=== PATIENT | female | born 1955 | race Caucasian/White ===

== ENCOUNTER 2023-11-25 06:54 | Inpatient (IN) | payer MEDICARE, MEDICAID ==
[2023-11-25] VITALS (19 sets, daily range): BP systolic 73–144; BP diastolic 47–81; PULSE 48–132; TEMP 97.4–97.8
[~2023-11-25] VITALS: Ht 160 cm; Wt 160.0 kg
[~2023-11-25 06:54] MED LIST: ALDACTONE 25MG25 M1 PO; ALL DAY ALLERGY10 M3 PO; BENADRYL25 M2 PO; BETAPACE 80MG80 MG PO; BUMEX2 MG PO; CALCITRIOL PO; CEPHALEXIN500 M1 PO; CRESTOR20 MG PO; DESYREL 50MG50 MG PO; DULCOLAX STOOL100 MG PO; EFFEXOR XR37.5 MG/CA PO; ELIQUIS 5MG PO; K-DUR20 MEQ PO; NATURE'S BLEND100 M2 PO; TAZTIA240 PO; TOPROL XL 25MG25 MG PO; TYLENOL 325MG325 MG PO; TYLENOL 500MG500 MG PO; UBIQUINOL100 MG PO; ULTRAM 50MG TAB50 MG PO; VITAMIND3 5000 PO; VOLTAREN GEL 1%1 TU TP; ZYLOPRIM 300MG300 MG PO
--- NOTE | 2023-11-25 07:32 | NUR ---
Patient arrived to unit via electric wheelchair from admissions.Pt reports recent fall at facility where she resides.Pt reports she can transfer independently.Standby assist x 2,gaitbelt used.Pt observed short of breath post transfer.Oxygen SAt at 76% after transfer.Pt reports she wears oxygen at night at 1 liter via nasal cannula.Rtmellisa notified.pt placed on oxygen via nasal cannula at 1 liter to start per instructions of RT.Pt now on 2 liters via nasal cannula at 90%.Daughter arrived and is at bedside.Pt observed resting in bed.EKG obtained by RT.
[2023-11-25 08:20] LABS: MEAN CELL VOLUME 90 fl (80.0-100.0); MEAN CORPUSCULAR HGB CONC 29 g/dl (33.0-37.0); MEAN PLATELET VOLUME 10.3 fl (7.4-10.4); PLATELET COUNT 355 K/mm3 (130-400); RED BLOOD COUNT 2.94 M/mm3 (4.10-5.30); REDCELL DISTRIBUTION WIDTH-CV 18.3 % (11.5-14.5)
[2023-11-25 08:25] LABS: HEMATOCRIT 26.3 % (37.0-47.0); HEMOGLOBIN 7.6 g/dl (12.5-16.0); MEAN CORPUSCULAR HEMOGLOBIN 26 pg (27-31)
[2023-11-25 08:35] LABS: INR 1.3 (0.8-3.0); PROTHROMBIN TIME 14.4 SECONDS (9.7-12.8)
[2023-11-25] MEDS ORDERED: EFFEXOR 3737.5 MG/TA PO (08:42)
[2023-11-25 08:43] LABS: CALCIUM 8.5 mg/dL (8.4-10.2); CREATININE, serum 2.21 mg/dL (0.57-1.11); POTASSIUM 3.3 mEq/L (3.5-4.5)
[2023-11-25] MEDS ORDERED: CRESTOR20 MG PO (08:44)
[2023-11-25] MEDS ORDERED: TYLENOL 500MG500 MG PO (08:46)
[2023-11-25] MEDS ORDERED: MAG-OX 400400 MG/TAB PO (08:47)
[2023-11-25] MEDS ORDERED: JARDIANCE25 PO (08:47)
[2023-11-25] MEDS ORDERED: CLARITIN 1010 MG/TAB PO (08:48)
[2023-11-25] MEDS ORDERED: ZYRTEC 10MG10 MG PO (08:49)
[2023-11-25] MEDS ORDERED: DESYREL 100MG100 MG PO (08:49)
[2023-11-25] MEDS ORDERED: NEURONTIN300 MG/CAP PO (08:50)
[2023-11-25] MEDS ORDERED: NEURONTIN600 MG/TAB PO (08:51)
[2023-11-25] MEDS ORDERED: VITAMIND3 5000 PO (08:52)
[2023-11-25] MEDS ORDERED: K-TAB20 PO (08:53)
[2023-11-25] MEDS ORDERED: B-121000 MCG PO (08:54)
[2023-11-25] MEDS ORDERED: ZAROXOLYN 2.52.5 MG PO (09:03)
[2023-11-25] MEDS ORDERED: NYAMYC100000 U/G TP (09:06)
[2023-11-25] MEDS ORDERED: ANTIVERT 25MG25 MG PO (09:07)
[2023-11-25] MEDS ORDERED: BIOTENE DRY M1000 ML PO (09:09)
[2023-11-25] MEDS ORDERED: CELEBREX 1100 MG/CAP PO (09:12)
[2023-11-25] MEDS ORDERED: TUSSIN CF PO (09:16)
[2023-11-25] MEDS ORDERED: VOLTAREN GEL 1%1 TU TP (09:16)
[2023-11-25] MEDS ORDERED: OXYGEN (09:17)
[2023-11-25] MEDS ORDERED: PREPH RC (09:18)
--- NOTE | 2023-11-25 09:43 | NUR ---
Urine sample obtained using straight cath kit following completion of trisha cares. Assisted by BAL Thomas. Pt tolerated well. Urine light yellow, cloudy with sediment. Pt now resting comfortably in bed. Call light in hand.
[2023-11-25] MEDS ORDERED: 1/2 NS 1,000 ML IV SCH (09:45)
[2023-11-25] MEDS ORDERED: ceFAZolin 2 G in Water For Injection,Sterile 20 ML IV SCH (09:45)
[2023-11-25] MEDS ORDERED: LR 1,000 ML IV SCH (10:00)
[2023-11-25] MEDS ORDERED: Acetaminophen 325 MG TAB PO PRN (10:00)
[2023-11-25] MEDS ORDERED: Ondansetron 4 MG/2 ML VIAL IV PRN (10:00)
[2023-11-25 10:08] LABS: COLLECTION METHOD CATHETER
[2023-11-25 10:15] LABS: PH 5.5 (5.0-8.5); URINE APPEARANCE TURBID (CLEAR/HAZY); URINE BLOOD 1+ (NEGATIVE); URINE COLOR YELLOW (YELLOW); URINE GLUCOSE 2+ (NEGATIVE); URINE KETONE NEGATIVE (NEGATIVE); URINE NITRATE NEGATIVE (NEGATIVE); URINE PROTEIN(semi-quant) 1+ (NEGATIVE); URINE UROBILINOGEN 0.2 E.U/dL (0.2-1.0)
--- NOTE | 2023-11-25 10:15 | NUR ---
Report to Virginia Hardy.Pt to transfer to room 353.
--- NOTE | 2023-11-25 11:00 | NUR ---
Pt transferred to room 353.report to Virginia Hernández.Patient assisted to bed x 2 assist,gaitbelt used.Daughter at bedside.Calllight within reach.
[2023-11-25 11:26] LABS: BASO # 0.1 K/mm3 (0.0-0.2); BASO % 0.4 % (0.0-2.0); EOS # 0.3 K/mm3 (0.0-0.7); EOS % 1.7 % (0.0-4.0); LYMPH # 1.4 K/mm3 (1.2-3.4); LYMPH % 8.8 % (20.0-51.0); MEAN CELL VOLUME 87 fl (80.0-100.0); MEAN CORPUSCULAR HGB CONC 29 g/dl (33.0-37.0); MEAN PLATELET VOLUME 10.6 fl (7.4-10.4); MONO # 0.9 K/mm3 (0.1-0.6); MONO % 5.5 % (1.7-9.3); PLATELET COUNT 382 K/mm3 (130-400)
[2023-11-25 11:31] LABS: HEMATOCRIT 26.2 % (37.0-47.0); HEMOGLOBIN 7.6 g/dl (12.5-16.0); MEAN CORPUSCULAR HEMOGLOBIN 25 pg (27-31)
[2023-11-25 11:47] LABS: SQUAMOUS EPITHELIAL 0-2 /hpf (0-10); URINE WBC >50 /hpf (0-2)
[2023-11-25] MEDS ORDERED: Phenylephrine/Mineral Oil/Petrolatum 57 GM TUBE RC PRN (12:00)
[2023-11-25] MEDS ORDERED: cefTRIAXone 2 G in Water For Injection,Sterile 20 ML IV SCH (12:00)
[2023-11-25] MEDS ORDERED: Meclizine 25 MG TAB PO PRN (12:00)
[2023-11-25] MEDS ORDERED: Mouth Moisturizer Spray 30 ML BOTTLE PO PRN (12:00)
[2023-11-25] MEDS ORDERED: Nystatin Powder **** subs to Miconazole Powder TOP PRN (12:00)
[2023-11-25] MEDS ORDERED: *Potassium Replacement Protocol MC SCH (12:15)
[2023-11-25] MEDS ORDERED: Potassium Bicarbonate/Citrate 20 MEQ Effervescent TAB PO SCH (12:15)
[2023-11-25] MEDS ORDERED: Miconazole 2% Topical Powder BOTTLE TP PRN (12:15)
--- NOTE | 2023-11-25 13:05 | NUR ---
PT ADMITTED INTO ROOM 353 AT [place] [id number] WITH A DIAGNOSIS OF HYPOXIA, UTI AND FALLS. O2 2L/NC. SHORT OF BREATH AT REST. DAUGHTER BROUGHT PT'S HOME CPAP WHICH IS AT BEDSIDE. FALL PRECAUTIONS IN PLACE. PATIETN REPORTS DIZZINESS WITH RECENT HISTORY OF FALLS. LARGE BRUISE NOTED FROM RIGHT ELBOW TO INNER UPPER ARM. MICHAEL CARE PROVIDED AND PUREWICK PLACED. TELE ADMINISTERED WITH A FLUTTER/A FIB RATE 90-100 PER CALL CENTER NURSE. DAUGHTER AT [facility]. NO COMPLAINTS AT THIS TIME. CALL LIGHT WITHIN REACH. BED ALARM ON.
[2023-11-25] MEDS ORDERED: Insulin Lispro (HumaLOG) SQ SCH (17:00)
--- NOTE | 2023-11-25 19:32 | NUR ---
First unit of PRBC started at 1735. This nurse remained with patient the first 15 minutes. Pt without s/s blood transfusion reaction. Rate for first 15 minutes 60ml/hr and increased to 120 after initial 15 minutes. Blood pressure improved. See flowsheet for vital signs. Transfusion continues at 120ml/hr. Patient now in bariatric bed. Resting with c-pap on.
--- NOTE | 2023-11-25 20:01 | NUR ---
DEONTE Morrison gave bedside report with this nurse (preceptor) present. PRBC infusion and IV site without s/s IV related complicaitons. Pt drowsy, wearing c-pap but arouses easily. VSS- see flowsheet. Pt to receive 2nd unit after completion of first unit.
--- NOTE | 2023-11-25 20:40 | NUR ---
UPON SHIFT ASSESSMENT, KIRBY'S TRANFUSION OF PRBC WAS NEARING COMPLETION. VS ARE STABLE AND TELE IS A-FIB AT 103 BPM. SHE IS AXO X 4 BUT STATES SHE FEELS TIRED. DENIES CHEST PAIN. LUNG SOUNDS ARE DIMISHED THROUGHOUT. PUREWICK DRAINING CLOUDY YELLOW URINE. REQUESTED VANILLA ICE CREAM. MED PASS COMPLETE. STATES NO OTHER NEEDS AT THIS TIME. BED ALARM ON AND CALL LIGHT WITHIN REACH.
[2023-11-25] MEDS ORDERED: Acetaminophen 500 MG TAB PO SCH (21:00)
[2023-11-25] MEDS ORDERED: Atorvastatin 40 MG TAB PO SCH (21:00)
[2023-11-25] MEDS ORDERED: Magnesium Oxide 400 MG TAB PO SCH (21:00)
[2023-11-25] MEDS ORDERED: Cetirizine 10 MG TAB PO SCH (21:00)
[2023-11-25 21:50] LABS: HEMATOCRIT 26.7 % (37.0-47.0); HEMOGLOBIN 7.8 g/dl (12.5-16.0)
--- NOTE | 2023-11-25 22:09 | NUR ---
CALL PLACED TO HOSPITALISTCEASAR. 1HR POST TRANSFUSION H&H 7.8 HgB. HOSPITALIST STATED POST H&H DONE TOO EARLY FOLLOWING TRANSFUSION. TORB TO REDRAW H&H AT 00:00 AND REDUCE LR DRIP RATE TO 50ML/HR GIVEN.
[2023-11-26] VITALS (24 sets, daily range): BP systolic 88–120; BP diastolic 57–95; PULSE 49–126; TEMP 97.4–98.5
[2023-11-26 00:55] LABS: HEMATOCRIT 25.8 % (37.0-47.0); HEMOGLOBIN 7.6 g/dl (12.5-16.0)
--- NOTE | 2023-11-26 01:04 | NUR ---
CALL PLACED TO HOSPITALIST CEASAR. PATIENT H&H RESULTS 7.6 Hgb. TORB TO TRANSFUSE ANOTHER UNIT PRBC
--- NOTE | 2023-11-26 04:01 | NUR ---
CALL PLACED TO HOSPITALIST CEASAR. RUBEN TO PROCEED WITH LASIXS IV FOLLOWING TRANSFUSION OF PRBC. SYSTOLIC BP MUST BE ABOVE 110 SYSTOLIC.
[2023-11-26] MEDS ORDERED: Furosemide 40 MG/4 ML VIAL IV ONE (06:00)
[2023-11-26 06:45] LABS: BASO # 0.1 K/mm3 (0.0-0.2); BASO % 0.4 % (0.0-2.0); EOS # 0.2 K/mm3 (0.0-0.7); EOS % 2.1 % (0.0-4.0); GRAN # 8.3 K/mm3 (1.4-6.5); GRAN % 73.9 % (42.2-75.2); LYMPH # 1.8 K/mm3 (1.2-3.4); MEAN CELL VOLUME 91 fl (80.0-100.0); MEAN CORPUSCULAR HGB CONC 30 g/dl (33.0-37.0); MEAN PLATELET VOLUME 10.8 fl (7.4-10.4); MONO # 0.8 K/mm3 (0.1-0.6); MONO % 7.2 % (1.7-9.3); PLATELET COUNT 342 K/mm3 (130-400); RED BLOOD COUNT 3.12 M/mm3 (4.10-5.30); REDCELL DISTRIBUTION WIDTH-CV 17.4 % (11.5-14.5)
[2023-11-26 06:53] LABS: HEMATOCRIT 28.3 % (37.0-47.0); HEMOGLOBIN 8.4 g/dl (12.5-16.0); MEAN CORPUSCULAR HEMOGLOBIN 27 pg (27-31)
[2023-11-26 07:12] LABS: CALCIUM 8.9 mg/dL (8.4-10.2); CREATININE, serum 2.05 mg/dL (0.57-1.11); POTASSIUM 3.5 mEq/L (3.5-4.5)
[2023-11-26] MEDS ORDERED: Calcitriol 0.25 MCG CAP PO SCH (09:00)
[2023-11-26] MEDS ORDERED: Pantoprazole 40 MG in NS 10 ML IV SCH (09:00)
[2023-11-26] MEDS ORDERED: Venlafaxine XR 37.5 MG CAP PO SCH (09:00)
[2023-11-26] MEDS ORDERED: Loratadine 10 MG TAB PO SCH (09:00)
[2023-11-26] MEDS ORDERED: Potassium Bicarbonate/Citrate 20 MEQ Effervescent TAB PO ONE (10:00)
--- NOTE | 2023-11-26 10:25 | NUR ---
Initial visit attempt; Patient sleeping, Ecmo Specialist left card offering [facility].
[2023-11-26] MEDS ORDERED: 1/2 NS 1,000 ML IV SCH (10:45)
[2023-11-26] MEDS ORDERED: 1/2 NS 1,000 ML IV ONE (11:00)
--- NOTE | 2023-11-26 11:54 | NUR ---
[employer] met with patient and her daughter, Anel (ph#[phone]) to complete initial intake. Patient lives at [facility] and sees Dr. Dobbins for primary care. V administers patient's medications and assists patient with ADLS. Patient has a walker for short distances within her room but uses a power chair for getting around anywhere outside of her room. Patient normally wears oxygen at night. Patient has DPOA-HC in chart designating two of her children, Alonzo and Anel. Anel lives locally and Alonzo is in [place]. Patient has a third child, Merary. Patient plans to return to [facility] at time of discharge. ANEESH sent updates to Russ at [facility] via secure email. Discharge Plan: [facility]
[2023-11-26] MEDS ORDERED: Ferrous Sulfate 325 MG TAB PO SCH (12:00)
[2023-11-26] MEDS ORDERED: Ascorbic Acid 500 MG TAB PO SCH (12:00)
--- NOTE | 2023-11-26 12:58 | NUR ---
Please see merge documentation for record of interventions, vitals and medications administered during pacemaker implant and loop recorder removal.
[2023-11-26] MEDS ORDERED: Iohexol 350 - 100 ML VIAL IV ONE (13:01)
[2023-11-26] MEDS ORDERED: NS 1,000 ML IV.SOLN. IR SCH (13:02)
[2023-11-26] MEDS ORDERED: Ondansetron 4 MG/2 ML VIAL IV PRN (13:45)
--- NOTE | 2023-11-26 13:45 | NUR ---
Patient to labor/excavator at approximately 1215 and still remains there. Purewick in place. O2 2L/BEATRIZ. BAL Garcia aware that patient had breakfast and meds with water. 1/2 NS bolus initiated. Rocephin administered. Dr. Rogers spoke to daughter in room.
--- NOTE | 2023-11-26 15:00 | NUR ---
Pt transferred back to [address] after pacemaker implant [address] Dr[address] Ortiz. Site looks good, ice applied. BS report and hand off of care back to Betty SELBY.
[2023-11-26] MEDS ORDERED: LR 1,000 ML IV SCH (15:15)
--- NOTE | 2023-11-26 15:30 | NUR ---
Patient returned to room, via bed, from slab lifting engineer. A/O x4. O2 2L/NC. See flowsheet for VS. Sunil Garcia RN, patient did not receive any sedation for procedure. Pacemaker site CDI. Ice applied. Sling not fully on at this time- can't properly wrap sling around body- patient obese and sling does not fit around patient's body- pt educated on restriction to LUE and verbalizes understanding. Daughter at bedside.
--- NOTE | 2023-11-26 16:00 | NUR ---
Notified Dr. Rogers of patient's request to have colononscopy as an outpatient. Patient reports that she would like time for her pacemaker site to heal and feels like her diarrhea has resolved since stopping the semaglutide. Does report hemmorhoids but reports allowing her pacemaker site to heal and to follow LUE restrictions is more of a priority for her. Daughter, Anel and patient both aware. Notified Leeanne in [facility] of cancellation.
--- NOTE | 2023-11-26 18:50 | NUR ---
Patient resting in bed with cpap on. A/O x4. Rates pain to low back /. Denies needs at this time.
--- NOTE | 2023-11-26 20:00 | NUR ---
Bedside report given Carleen Bonilla RN.
--- NOTE | 2023-11-26 21:00 | NUR ---
SHIFT ASSESSMENT COMPLETE. MED PASS COMPLETE. PATIENT AXO X 4 LAYING IN BED. ICE PACK TO UPPER LT CHEST PACEMAKER SURGICAL SITE. DRESSING IS CDI AND PATIENT CURRENTLY DENIES PAIN. DISTAL PULSES GOOD. PATIENT DENIES CHAEST PAIN AND SOA AT THIS TIME, HOWEVER IT IS NOTED THAT DURING CARES THAT REQUIRE SHIFT IN BODY WEIGHT, PATIENT BECOMES SOA . TELE STATES AFLUTTER AT 100 BPM. OTHER VS ARE WNL. PACEMAKER TO BE INTERIGATED IN MORNING.
--- NOTE | 2023-11-26 23:27 | NUR ---
Charge alerted to mews score 3. Pulse 104 BP 100/58 all other vitals wnl. Tele is afib'aflutter.
[2023-11-27 01:00] VITALS: BP_SYST 101
--- NOTE | 2023-11-27 01:00 | NUR ---
PANNUS AND UNDERNEATH BREASTS MOIST-INTERDRY PLACED.
--- NOTE | 2023-11-27 01:32 | NUR ---
MEWS SCORE NOW AT 1.
[2023-11-27 03:51] VITALS: BP 114/70; PULSE 90; TEMP 97.8
[2023-11-27 05:44] VITALS: BP_SYST 114
[2023-11-27 05:45] VITALS: TEMP 98.2
[2023-11-27 06:30] LABS: BASO % 0.2 % (0.0-2.0); EOS # 0.4 K/mm3 (0.0-0.7); EOS % 3.6 % (0.0-4.0); GRAN # 9.7 K/mm3 (1.4-6.5); GRAN % 80.3 % (42.2-75.2); LYMPH # 1.2 K/mm3 (1.2-3.4); LYMPH % 9.6 % (20.0-51.0); MEAN CELL VOLUME 91 fl (80.0-100.0); MEAN CORPUSCULAR HGB CONC 29 g/dl (33.0-37.0); MEAN PLATELET VOLUME 10.1 fl (7.4-10.4); MONO # 0.7 K/mm3 (0.1-0.6); MONO % 5.9 % (1.7-9.3); PLATELET COUNT 314 K/mm3 (130-400); RED BLOOD COUNT 3.23 M/mm3 (4.10-5.30); REDCELL DISTRIBUTION WIDTH-CV 17.8 % (11.5-14.5)
[2023-11-27 06:35] LABS: HEMATOCRIT 29.5 % (37.0-47.0); HEMOGLOBIN 8.5 g/dl (12.5-16.0); MEAN CORPUSCULAR HEMOGLOBIN 26 pg (27-31)
[2023-11-27 06:55] LABS: CALCIUM 8.4 mg/dL (8.4-10.2); CREATININE, serum 1.68 mg/dL (0.57-1.11); POTASSIUM 3.4 mEq/L (3.5-4.5)
[2023-11-27] MEDS ORDERED: Dextrose 50% Water 25 GM/50 ML SYRINGE IV PRN (07:30)
[2023-11-27] MEDS ORDERED: Glucagon 1 MG VIAL IM PRN (07:30)
[2023-11-27] MEDS ORDERED: Dextrose (Glucose) 15 GM (4 x 3.75 GM) Chewable TABLET PACK PO PRN (07:30)
[2023-11-27 07:37] VITALS: BP 144/80; PULSE 111; TEMP 97.5
[2023-11-27] MEDS ORDERED: Potassium Bicarbonate/Citrate 20 MEQ Effervescent TAB PO SCH (09:15)
[2023-11-27 10:00] VITALS: BP_SYST 144
--- NOTE | 2023-11-27 10:00 | NUR ---
PT LAYING IN BED UPON ENTERING, CPAP ON. ASSESSMENT DONE, MEDS GIVEN. PT REPORTS BACK PAIN THAT IS TOLERABLE, SCHEDULED TYLENOL GIVEN. PT ON 2L NASAL CANNULA. POTASSIUM PROTOCOL STARTED. ROCALTROL NOT STOCKED IN PYXIS AT THIS TIME, PUMP REBUILDER NOTIFIED. PACEMAKER TO LEFT CHEST COVERED WITH GAUZE AND TAPE THAT IS CLEAN DRY AND INTACT. PT DENIES NEEDS. BED IN LOWEST POSITION, CALL LIGHT IN REACH, BED ALARM ON
--- NOTE | 2023-11-27 11:08 | NUR ---
ANEESH was informed pt can discharge today to [facility]. ANEESH spoke with Russ who confirmed this and can transport around 1111:15am. ANEESH emailed discharge orders. ANEESH informed Dr. Ambriz and BAL Ureña. Discharge Plan: [facility] at 11:15am
[2023-11-27] MEDS ORDERED: VITAMIN C500 MG PO (11:09)
[2023-11-27] MEDS ORDERED: FERRO-TIME325 MG PO (11:10)
[2023-11-27] MEDS ORDERED: CEFTIN500 MG PO (11:11)
--- NOTE | 2023-11-27 11:27 | NUR ---
IV AND TELE REMOVED. PT DRESSED IN PERSONAL CLOTHES AND TRANSFERRED TO PERSONAL WHEELCHAIR. PT DENIES NEEDS AND CARE TRANSFERRED OVER TO [facility] ON THE FLOOR. PT DENIES NEEDS.
[2023-11-27] MEDS ORDERED: Digoxin 0.25 MG/ML 2 ML VIAL IV ONE (11:30)
--- NOTE | 2023-11-27 12:13 | NUR ---
PACEMAKER ID CARD FAXED TO [facility], [facility] NURSE NOTIFIED THIS NURSE THAT SOMEONE WILL BE ON THE FLOOR ON 11/27 TO BRAND PLANNER HARD COPY
[2023-11-27] MEDS ORDERED: PEG3350/Sod Sulf,Bicarb,Cl/KCl Oral Soln 4,000 ML Bottle PO SCH (17:30)
== END 2023-11-27 12:14 | DRG 853 ==
LOC: COL.CAR 06:54 → MEDICAL 06:54 → COL.CAR 07:00 → MEDICAL 10:56 → COL.CAR 10:56 → MEDICAL 11:55 → COL.CAR 12:53 → MEDICAL 12:55 → COL.CAR 12:55 → MEDICAL 11-26 09:32
PROVIDERS: Internal Medicine Cardiovascular Disease; Internal Medicine Gastroenterology; ADMIT Internal Medicine
PROC: 0JH606Z Insertion of Pacemaker, Dual Chamber into Chest Subcutaneous Tissue and Fascia, Open Approach (ICD-10-PCS; principal; 2023-11-25)
PROC: 02H63JZ Insertion of Pacemaker Lead into Right Atrium, Percutaneous Approach (ICD-10-PCS; 2023-11-25)
PROC: 02HK3JZ Insertion of Pacemaker Lead into Right Ventricle, Percutaneous Approach (ICD-10-PCS; 2023-11-25)
PROC: 0JPT32Z Removal of Monitoring Device from Trunk Subcutaneous Tissue and Fascia, Percutaneous Approach (ICD-10-PCS; 2023-11-25)
DX: A41.9 Sepsis, unspecified organism (principal); J96.01 Acute respiratory failure with hypoxia; N39.0 Urinary tract infection, site not specified; N17.9 Acute kidney failure, unspecified; E87.3 Alkalosis; N18.9 Chronic kidney disease, unspecified; D64.9 Anemia, unspecified; E61.1 Iron deficiency; R19.7 Diarrhea, unspecified; I95.9 Hypotension, unspecified; E87.6 Hypokalemia; I48.0 Paroxysmal atrial fibrillation; Z79.01 Long term (current) use of anticoagulants; I49.5 Sick sinus syndrome; R42 Dizziness and giddiness; E11.40 Type 2 diabetes mellitus with diabetic neuropathy, unspecified; E78.5 Hyperlipidemia, unspecified; F32.A Depression, unspecified; G47.00 Insomnia, unspecified; G47.33 Obstructive sleep apnea (adult) (pediatric); R53.81 Other malaise; R53.1 Weakness
CPT/HCPCS: A9284; J0665-JZ; J0690; J0696; J1815; J1940; J2470; J7030; J7120; P9016; Q9967

== ENCOUNTER 2023-11-28 15:12 | Emergency (ER) | payer MEDICARE, MEDICAID ==
[~2023-11-28] VITALS: Ht 160 cm; Wt 154.5 kg
[~2023-11-28 15:12] MED LIST changes: +ANTIVERT 25MG25 MG PO; +B-121000 MCG PO; +BIOTENE DRY M1000 ML PO; +CEFTIN500 MG PO; +CELEBREX 1100 MG/CAP PO; +CLARITIN 1010 MG/TAB PO; +DESYREL 100MG100 MG PO; +EFFEXOR 3737.5 MG/TA PO; +FERRO-TIME325 MG PO; +JARDIANCE25 PO; +K-TAB20 PO; +MAG-OX 400400 MG/TAB PO; +NEURONTIN300 MG/CAP PO; +NEURONTIN600 MG/TAB PO; +NYAMYC100000 U/G TP; +OXYGEN; +PREPH RC; +TUSSIN CF PO; +VITAMIN C500 MG PO; +ZAROXOLYN 2.52.5 MG PO; +ZYRTEC 10MG10 MG PO
[2023-11-28 15:32] VITALS: TEMP 97.6
[2023-11-28 15:48] LABS: BASO # 0.1 K/mm3 (0.0-0.2); BASO % 0.3 % (0.0-2.0); EOS # 0.2 K/mm3 (0.0-0.7); EOS % 1.3 % (0.0-4.0); GRAN # 14.3 K/mm3 (1.4-6.5); GRAN % 80.5 % (42.2-75.2); LYMPH # 1.9 K/mm3 (1.2-3.4); LYMPH % 10.5 % (20.0-51.0); MEAN CELL VOLUME 91 fl (80.0-100.0); MEAN CORPUSCULAR HGB CONC 28 g/dl (33.0-37.0); MEAN PLATELET VOLUME 10.4 fl (7.4-10.4); MONO # 1.2 K/mm3 (0.1-0.6); MONO % 6.8 % (1.7-9.3); PLATELET COUNT 382 K/mm3 (130-400); RED BLOOD COUNT 3.09 M/mm3 (4.10-5.30); REDCELL DISTRIBUTION WIDTH-CV 18.2 % (11.5-14.5)
[2023-11-28 15:51] LABS: HEMOGLOBIN 7.9 g/dl (12.5-16.0); MEAN CORPUSCULAR HEMOGLOBIN 26 pg (27-31)
[2023-11-28 15:59] LABS: INR 1.6 (0.8-3.0); PROTHROMBIN TIME 16.8 SECONDS (9.7-12.8)
[2023-11-28] MEDS ORDERED: dilTIAZem 25 MG/5 ML VIAL IV ONE ×2 (16:00→17:30)
[2023-11-28] MEDS ORDERED: NS 500 ML IV ONE ×2 (16:00→18:00)
[2023-11-28 16:08] LABS: ALBUMIN 2.8 g/dL (3.4-4.8); BILIRUBIN,TOTAL 0.8 mg/dL (0.2-1.2); CALCIUM 9.4 mg/dL (8.4-10.2); CREATININE, serum 1.6 mg/dL (0.57-1.11); MAGNESIUM 2.8 mg/dL (1.6-2.6); POTASSIUM 4.2 mEq/L (3.5-4.5); TOTAL PROTEIN 6.9 g/dl (6.2-8.1)
[2023-11-28 16:14] LABS: TROPONIN-I 0.023 ng/mL (0.00-0.033)
[2023-11-28] MEDS ORDERED: Digoxin 0.25 MG/ML 2 ML VIAL IV ONE (19:00)
[2023-11-28 21:01] VITALS: BP 98/72; PULSE 138
== END 2023-11-28 21:04 | disposition short-term general hospital (02) ==
LOC: COL.ER 15:12
PROVIDERS: Emergency Medicine
DX: I48.92 Unspecified atrial flutter (principal); I95.9 Hypotension, unspecified; D64.9 Anemia, unspecified; E66.01 Morbid (severe) obesity due to excess calories; Z95.0 Presence of cardiac pacemaker; Z95.818 Presence of other cardiac implants and grafts; Z68.44 Body mass index [BMI] 60.0-69.9, adult
CPT/HCPCS: J1160; J7040

== ENCOUNTER 2024-01-12 03:59 | Emergency (ER) | payer MEDICARE, MEDICAID ==
[~2024-01-12] VITALS: Ht 160 cm; Wt 160.0 kg
[2024-01-12 04:03] VITALS: TEMP 98.7
[2024-01-12 04:30] LABS: BASO % 0.2 % (0.0-2.0); EOS # 0.4 K/mm3 (0.0-0.7); GRAN # 9.3 K/mm3 (1.4-6.5); GRAN % 73.4 % (42.2-75.2); LYMPH # 2.1 K/mm3 (1.2-3.4); LYMPH % 16.2 % (20.0-51.0); MEAN CELL VOLUME 89 fl (80.0-100.0); MEAN CORPUSCULAR HGB CONC 28 g/dl (33.0-37.0); MONO # 0.9 K/mm3 (0.1-0.6); MONO % 6.7 % (1.7-9.3); PLATELET COUNT 382 K/mm3 (130-400); RED BLOOD COUNT 3.95 M/mm3 (4.10-5.30); REDCELL DISTRIBUTION WIDTH-CV 18.4 % (11.5-14.5)
[2024-01-12 04:31] LABS: HEMATOCRIT 35.1 % (37.0-47.0); HEMOGLOBIN 9.7 g/dl (12.5-16.0); MEAN CORPUSCULAR HEMOGLOBIN 25 pg (27-31)
[2024-01-12 05:06] LABS: ALANINE AMINOTRANSFERASE 12 U/L (0-55); ALBUMIN 3.2 g/dL (3.4-4.8); ALKALINE PHOSPHATASE 159 U/L (40-150); ANION GAP 11 mmol/L (7-16); AST,SGOT 18 U/L (5-34); BILIRUBIN,TOTAL 0.5 mg/dL (0.2-1.2); BLOOD UREA NITROGEN 30 mg/dL (10-20); CALCIUM 9.2 mg/dL (8.4-10.2); CHLORIDE 93 mEq/L (98-107); CREATININE, serum 1.63 mg/dL (0.57-1.11); GLUCOSE 142 mg/dL (70-99); POTASSIUM 3.8 mEq/L (3.5-4.5); SODIUM 139 mEq/L (136-145); TOTAL PROTEIN 7.3 g/dl (6.2-8.1)
[2024-01-12 05:17] LABS: TROPONIN-I < 0.010 ng/mL (0.00-0.033)
[2024-01-12 08:05] VITALS: BP 110/68; PULSE 70
== END 2024-01-12 08:05 | disposition home or self-care (01) ==
LOC: COL.ER 03:59
PROVIDERS: Emergency Medicine
DX: R09.02 Hypoxemia (principal); E66.01 Morbid (severe) obesity due to excess calories; Z99.81 Dependence on supplemental oxygen; Z68.44 Body mass index [BMI] 60.0-69.9, adult

== ENCOUNTER 2024-01-19 08:56 | Day surgery (SDC) | payer MEDICARE, MEDICAID ==
[~2024-01-19] VITALS: Ht 160 cm; Wt 160.3 kg
[~2024-01-19 08:56] MED LIST changes: +LR 1,000 ML IV SCH; +Ondansetron 4 MG/2 ML VIAL IV PRN
[2024-01-19 11:30] VITALS: BP 120/83; PULSE 75
[2024-01-19 11:45] VITALS: BP 122/89; PULSE 80
[2024-01-19 12:00] VITALS: BP 139/92; PULSE 79
[2024-01-19 12:11] VITALS: BP 117/66; PULSE 73; TEMP 97.1
--- NOTE | 2024-01-19 18:35 | NUR ---
1130 PATIENT RETURNS TO [facility] VIA CART. PT AWAKE AND ALERT. RESPIRATIONS UNLABORED. AMBULATED TO WHEELCHAIR WITH 2:1 SBA. PT DENIES NAUSEA OR ABDOMINAL PAIN. HOOKED UP TO MONITOR AND VS OBTAINED. CALL LIGHT AT SIDE AND DAUGHTER PRESENT. 1135 PATIENT TOLERATING PEPSI AND MUFFIN WITHOUT NAUSEA OR DIFFICULTY SWALLOWING. 1145 IN ROOM SPEAKING WITH PATIENT. 1200 D/C INSTRUCTIONS REVIEWED WITH PATIENT. PT VERBALIZED UNDERSTANDING AND A COPY OF INSTRUCTIONS PROVIDED IN D/C FOLDER. 1210 PATIENT DRESSES SELF. 1215 PATIENT DISCHARGED FROM UNIT VIA W/C TO A PERSONAL VEHICLE. PT LEFT HOSPITAL IN STABLE CONDITION.
== END 2024-01-19 12:15 | disposition home or self-care (01) ==
LOC: SDCO 08:56
DX: D12.2 Benign neoplasm of ascending colon (principal); D13.1 Benign neoplasm of stomach; K29.30 Chronic superficial gastritis without bleeding; K44.9 Diaphragmatic hernia without obstruction or gangrene; R19.4 Change in bowel habit; K64.4 Residual hemorrhoidal skin tags; K57.30 Diverticulosis of large intestine without perforation or abscess without bleeding; K64.0 First degree hemorrhoids; D64.9 Anemia, unspecified; E66.01 Morbid (severe) obesity due to excess calories; G47.33 Obstructive sleep apnea (adult) (pediatric); Z87.891 Personal history of nicotine dependence; Z95.0 Presence of cardiac pacemaker; Z79.01 Long term (current) use of anticoagulants
CPT/HCPCS: J2704

== ENCOUNTER 2024-02-09 12:41 | Inpatient (IN) | payer MEDICARE ==
[~2024-02-09] VITALS: Ht 160 cm; Wt 163.6 kg
[~2024-02-09 12:41] MED LIST changes: -LR 1,000 ML IV SCH; -Ondansetron 4 MG/2 ML VIAL IV PRN
[2024-02-09 13:28] LABS: BASO % 0.2 % (0.0-2.0); EOS # 0.2 K/mm3 (0.0-0.7); EOS % 1.3 % (0.0-4.0); GRAN # 13.2 K/mm3 (1.4-6.5); GRAN % 81.9 % (42.2-75.2); HEMATOCRIT 36.2 % (37.0-47.0); LYMPH # 1.8 K/mm3 (1.2-3.4); LYMPH % 10.9 % (20.0-51.0); MEAN CELL VOLUME 90 fl (80.0-100.0); MEAN CORPUSCULAR HEMOGLOBIN 25 pg (27-31); MEAN CORPUSCULAR HGB CONC 28 g/dl (33.0-37.0); MEAN PLATELET VOLUME 10.3 fl (7.4-10.4); MONO # 0.9 K/mm3 (0.1-0.6); MONO % 5.3 % (1.7-9.3); PLATELET COUNT 402 K/mm3 (130-400); RED BLOOD COUNT 4.04 M/mm3 (4.10-5.30); REDCELL DISTRIBUTION WIDTH-CV 19.2 % (11.5-14.5)
[2024-02-09] MEDS ORDERED: Furosemide 40 MG/4 ML VIAL IV ONE (13:30)
[2024-02-09] MEDS ORDERED: Albuterol/Ipratropium 3 MG-0.5 MG/3 ML Neb Soln IH ONE (13:30)
[2024-02-09 13:52] LABS: ALANINE AMINOTRANSFERASE 12 U/L (0-55); ALBUMIN 3.4 g/dL (3.4-4.8); ALKALINE PHOSPHATASE 153 U/L (40-150); ANION GAP 15 mmol/L (7-16); AST,SGOT 16 U/L (5-34); BILIRUBIN,TOTAL 0.4 mg/dL (0.2-1.2); BLOOD UREA NITROGEN 37 mg/dL (10-20); CALCIUM 9.4 mg/dL (8.4-10.2); CHLORIDE 93 mEq/L (98-107); CREATININE, serum 1.74 mg/dL (0.57-1.11); GLUCOSE 165 mg/dL (70-99); POTASSIUM 4.6 mEq/L (3.5-4.5); SODIUM 139 mEq/L (136-145); TOTAL PROTEIN 7.5 g/dl (6.2-8.1)
[2024-02-09 14:03] LABS: TROPONIN-I < 0.010 ng/mL (0.00-0.033)
[2024-02-09 14:42] LABS: INR 1.6 (0.8-3.0); PROTHROMBIN TIME 17.1 SECONDS (9.7-12.8)
[2024-02-09] MEDS ORDERED: PACERONE200 MG PO (14:45)
[2024-02-09] MEDS ORDERED: NEURONTIN300 MG/CAP PO (14:46)
[2024-02-09] MEDS ORDERED: NEURONTIN600 MG/TAB PO (14:47)
[2024-02-09] MEDS ORDERED: ZYRTEC 10MG10 MG PO (14:50)
[2024-02-09] MEDS ORDERED: CLARITIN 1010 MG/TAB PO (14:52)
[2024-02-09] MEDS ORDERED: MAG-OX 400400 MG/TAB PO (14:53)
[2024-02-09] MEDS ORDERED: K-DUR20 MEQ PO ×2 (14:57→15:01)
[2024-02-09] MEDS ORDERED: CRESTOR20 MG PO (14:57)
[2024-02-09] MEDS ORDERED: COLACE 100100 MG/CAP PO (15:00)
[2024-02-09] MEDS ORDERED: MIRALAX PA17 GM/Dose PO (15:03)
[2024-02-09] MEDS ORDERED: ANTIVERT 25MG25 MG PO (15:04)
[2024-02-09] MEDS ORDERED: PREPH RC (15:05)
[2024-02-09] MEDS ORDERED: NYAMYC100000 U/G TP (15:05)
[2024-02-09] MEDS ORDERED: TYLENOL 325MG325 MG PO (15:06)
[2024-02-09] MEDS ORDERED: ROBITUSSIN100 MG/5 M PO (15:07)
[2024-02-09 15:19] LABS: COLLECTION METHOD CLEAN CATCH
[2024-02-09 15:36] LABS: URINE APPEARANCE CLEAR (CLEAR/HAZY); URINE BLOOD NEGATIVE (NEGATIVE); URINE COLOR YELLOW (YELLOW); URINE GLUCOSE 2+ (NEGATIVE); URINE KETONE NEGATIVE (NEGATIVE); URINE NITRATE NEGATIVE (NEGATIVE); URINE PROTEIN(semi-quant) NEGATIVE (NEGATIVE); URINE UROBILINOGEN 0.2 E.U/dL (0.2-1.0)
[2024-02-09] MEDS ORDERED: Ondansetron 4 MG/2 ML VIAL IV PRN (15:45)
[2024-02-09] MEDS ORDERED: Acetaminophen 325 MG TAB PO PRN (15:45)
[2024-02-09] MEDS ORDERED: cefTRIAXone 1 G in Water For Injection,Sterile 10 ML IV SCH (16:00)
[2024-02-09] MEDS ORDERED: Sennosides/Docusate 8.6-50 MG TAB PO SCH (16:26)
[2024-02-09] MEDS ORDERED: Polyethylene Glycol 3350 17 GM PDS PO SCH (16:27)
[2024-02-09] MEDS ORDERED: Insulin Lispro (HumaLOG) SQ SCH (17:00)
[2024-02-09 17:10] VITALS: BP 171/82; PULSE 73; TEMP 97.9
--- NOTE | 2024-02-09 17:17 | NUR ---
PATIENT ADMITTED TO MEDICAL UNIT AT THIS TIME. ADMISSION INTAKE AND ASSESSMENT COMPLETED. PATIENT CURRENTLY ON 3L O2 VIA NC. PUREWICK IN PLACE AND DRAINING CLEAR YELLOW URINE. PATIENT DENIES ANY PAIN AT THIS TIME. MED REC REVIEWED. CALL LIGHT WITHIN REACH, WILL CONTINUE TO MONITOR.
[2024-02-09 17:20] VITALS: BP_SYST 171
[2024-02-09 19:14] VITALS: BP 105/62; PULSE 70; TEMP 97.4
[2024-02-09 20:20] VITALS: BP_SYST 105
[2024-02-09] MEDS ORDERED: Apixaban 5 MG TABLET PO SCH (21:00)
[2024-02-09] MEDS ORDERED: Atorvastatin 40 MG TAB PO SCH (21:00)
[2024-02-09] MEDS ORDERED: traZODone 100 MG TAB PO SCH (21:00)
[2024-02-09] MEDS ORDERED: Rosuvastatin 20 MG **** subs to Atorvastatin 40 MG PO SCH (21:00)
[2024-02-09] MEDS ORDERED: Docusate Sodium 100 MG CAP PO SCH (21:00)
[2024-02-10] VITALS (12 sets, daily range): BP systolic 104–122; BP diastolic 57–76; PULSE 69–71; TEMP 98.2–98.8
[2024-02-10] MEDS ORDERED: traMADol 50 MG TAB PO PRN (00:15)
[2024-02-10] MEDS ORDERED: Dextrose 50% Water 25 GM/50 ML SYRINGE IV PRN (07:15)
[2024-02-10] MEDS ORDERED: Dextrose (Glucose) 15 GM (4 x 3.75 GM) Chewable TABLET PACK PO PRN (07:15)
[2024-02-10] MEDS ORDERED: Glucagon 1 MG VIAL IM PRN (07:15)
[2024-02-10 07:37] LABS: BASO % 0.3 % (0.0-2.0); EOS # 0.2 K/mm3 (0.0-0.7); EOS % 2.1 % (0.0-4.0); GRAN # 8.6 K/mm3 (1.4-6.5); GRAN % 78.6 % (42.2-75.2); LYMPH # 1.3 K/mm3 (1.2-3.4); LYMPH % 11.7 % (20.0-51.0); MEAN CELL VOLUME 88 fl (80.0-100.0); MEAN CORPUSCULAR HGB CONC 28 g/dl (33.0-37.0); MEAN PLATELET VOLUME 10.1 fl (7.4-10.4); MONO # 0.8 K/mm3 (0.1-0.6); MONO % 6.9 % (1.7-9.3); RED BLOOD COUNT 3.48 M/mm3 (4.10-5.30)
[2024-02-10 07:46] LABS: HEMATOCRIT 30.7 % (37.0-47.0); HEMOGLOBIN 8.7 g/dl (12.5-16.0); MEAN CORPUSCULAR HEMOGLOBIN 25 pg (27-31); PLATELET COUNT 296 K/mm3 (130-400)
[2024-02-10 07:47] LABS: ALBUMIN 2.8 g/dL (3.4-4.8); BILIRUBIN,TOTAL 0.4 mg/dL (0.2-1.2); CALCIUM 9.3 mg/dL (8.4-10.2); CREATININE, serum 1.61 mg/dL (0.57-1.11); POTASSIUM 3.6 mEq/L (3.5-4.5); TOTAL PROTEIN 6.4 g/dl (6.2-8.1)
[2024-02-10] MEDS ORDERED: Furosemide 40 MG/4 ML VIAL IV ONE (08:30)
--- NOTE | 2024-02-10 08:30 | NUR ---
patient alert and oriented x4. reports pain to left knee rating it 7/10. patient given prn and repositioned. patient telemetry inplace. patient has left lower extremity red rash.purewick draining yellow foamy urine. patient on bariatric bed, call light within reach. bed at lowest position.
[2024-02-10] MEDS ORDERED: Amiodarone 200 MG TAB PO SCH (09:00)
[2024-02-10] MEDS ORDERED: Magnesium Oxide 400 MG TAB PO SCH (09:00)
[2024-02-10] MEDS ORDERED: Venlafaxine XR 37.5 MG CAP PO SCH (09:00)
[2024-02-10] MEDS ORDERED: traZODone 100 MG TAB PO SCH (09:00)
--- NOTE | 2024-02-10 09:53 | NUR ---
ANEESH met with patient to complete inital assessment for discharge planning. Patient verified that she lives at [facility] since September 2022. She sees Dr. Dobbins as her PCP and uses [facility] pharmacy. Patient uses a walker and power chair for ambulation and has continuous oxygen and CPAP when sleeping. Patient lists her daughter Anel Blackburn ([phone]) and her son Alonzo ([phone]) as her DPOA. Plan is to return to [facility] when medically stable Discharge plan: [facility] SN[facility]
--- NOTE | 2024-02-10 10:01 | NUR ---
Initial visit; A very sweet lady who states she is from [place] and move here and is in love with her home in [place], [place]. Davina thanked Bicycle Fitter for looking in on her and offering God's blessings and has no more specific needs at this time.
--- NOTE | 2024-02-10 11:03 | NUR ---
SW sent clinical updates to [facility] via secure email. Discharge plan: [facility]
--- NOTE | 2024-02-10 23:50 | NUR ---
patient lying in bed, alert and oriented x4. denies chest pain and shortness of breath. IV in ZOYA is patent, site CDI. left lower ramos with some red discoloration, pt denied pain/tenderness to area. BLE edema nonpitting noted. pt o2 adjusted per respiratory therapy to keep o2 sat >90%. pt has no further needs, questions or concerns at this time.
[2024-02-11] VITALS (7 sets, daily range): BP systolic 105–136; BP diastolic 61–79; PULSE 69–70; TEMP 98.1–98.9
[2024-02-11 06:53] LABS: BASO % 0.1 % (0.0-2.0); EOS # 0.2 K/mm3 (0.0-0.7); EOS % 1.8 % (0.0-4.0); GRAN # 9.6 K/mm3 (1.4-6.5); GRAN % 81.2 % (42.2-75.2); LYMPH # 1.2 K/mm3 (1.2-3.4); LYMPH % 10.4 % (20.0-51.0); MEAN CELL VOLUME 87 fl (80.0-100.0); MEAN CORPUSCULAR HGB CONC 29 g/dl (33.0-37.0); MEAN PLATELET VOLUME 10.1 fl (7.4-10.4); MONO # 0.7 K/mm3 (0.1-0.6); MONO % 6.2 % (1.7-9.3); PLATELET COUNT 296 K/mm3 (130-400); RED BLOOD COUNT 3.59 M/mm3 (4.10-5.30); REDCELL DISTRIBUTION WIDTH-CV 18.8 % (11.5-14.5)
[2024-02-11 06:55] LABS: HEMATOCRIT 31.3 % (37.0-47.0); MEAN CORPUSCULAR HEMOGLOBIN 25 pg (27-31)
[2024-02-11 07:14] LABS: ALBUMIN 2.7 g/dL (3.4-4.8); BILIRUBIN,TOTAL 0.6 mg/dL (0.2-1.2); CALCIUM 8.9 mg/dL (8.4-10.2); CREATININE, serum 1.52 mg/dL (0.57-1.11); POTASSIUM 3.7 mEq/L (3.5-4.5); TOTAL PROTEIN 6.2 g/dl (6.2-8.1)
--- NOTE | 2024-02-11 09:25 | NUR ---
patient alert and oriented x4. vss within normal limits. Reports 2/10 pain to left knee. patient on 5l/nc, telemetry inplace. call light within reach. bed at lowest position. bed alarm on.
[2024-02-11] MEDS ORDERED: TOPROL XL 25MG25 MG PO (11:55)
[2024-02-11] MEDS ORDERED: ZAROXOLYN 2.52.5 MG PO (11:58)
--- NOTE | 2024-02-11 14:23 | NUR ---
patient report given to nurse receiving patient at via [facility].
--- NOTE | 2024-02-11 14:25 | NUR ---
patient iv removed from left upper arm. patient dressed and telemetry discontinued. patient transported out of unit by [facility] staff.
--- NOTE | 2024-02-11 16:36 | NUR ---
reinforcing metal worker was notified by patient's nurse that patient is medically ready for discharge. SW notified [facility] whom can cotton picking machine operator patient at 2 pm. SW notified patient's nurse. ANEESH secure emailed discharge orders and clinical updates to Russ at [facility]. Discharge plan: [facility]
[2024-02-12] MEDS ORDERED: metOLazone 2.5 MG TAB PO SCH (09:00)
== END 2024-02-11 14:34 | DRG 291 ==
LOC: COL.ER 12:41 → MEDICAL 15:38
PROVIDERS: Physician Assistant; ADMIT Internal Medicine
DX: I13.0 Hypertensive heart and chronic kidney disease with heart failure and stage 1 through stage 4 chronic kidney disease, or unspecified chronic kidney disease (principal); I50.33 Acute on chronic diastolic (congestive) heart failure; J96.21 Acute and chronic respiratory failure with hypoxia; N39.0 Urinary tract infection, site not specified; N17.9 Acute kidney failure, unspecified; E87.3 Alkalosis; Z68.44 Body mass index [BMI] 60.0-69.9, adult; I48.0 Paroxysmal atrial fibrillation; I49.5 Sick sinus syndrome; E78.5 Hyperlipidemia, unspecified; G47.33 Obstructive sleep apnea (adult) (pediatric); E66.01 Morbid (severe) obesity due to excess calories; K59.00 Constipation, unspecified; R53.81 Other malaise; F32.A Depression, unspecified; Z20.822 Contact with and (suspected) exposure to COVID-19; D64.9 Anemia, unspecified; E87.6 Hypokalemia; E83.42 Hypomagnesemia; E11.22 Type 2 diabetes mellitus with diabetic chronic kidney disease; N18.9 Chronic kidney disease, unspecified; H26.9 Unspecified cataract; I08.1 Rheumatic disorders of both mitral and tricuspid valves; E11.40 Type 2 diabetes mellitus with diabetic neuropathy, unspecified; I89.0 Lymphedema, not elsewhere classified; G47.00 Insomnia, unspecified; Z99.81 Dependence on supplemental oxygen; Z95.0 Presence of cardiac pacemaker; Z88.8 Allergy status to other drugs, medicaments and biological substances; Z79.899 Other long term (current) drug therapy; Z79.01 Long term (current) use of anticoagulants
CPT/HCPCS: J0696; J1815; J1940